=== PATIENT | male | born 1985 | race Two or more races ===

== ENCOUNTER 2022-05-13 18:09 | Emergency (ER) | payer OTHER ==
[~2022-05-13] VITALS: Ht 180.3 cm; Wt 93.4 kg
[2022-05-13] MEDS ORDERED: COZAAR50 MG (18:53)
[2022-05-13] MEDS ORDERED: VAZALORE81 MG (18:53)
== END 2022-05-13 22:25 | disposition home or self-care (01) ==
LOC: ER 18:09
DX: R07.89 Other chest pain (principal); I10 Essential (primary) hypertension